=== PATIENT | female | born 1955 | race African-American/Black ===

== ENCOUNTER 2017-11-27 20:33 | Emergency (ER) | payer SELFPAY ==
[~2017-11-27] VITALS: Ht 157.5 cm; Wt 69.0 kg
[2017-11-27] MEDS ORDERED: METHYLPREDNISOLONE SOD SUCC 125 MG/2 ML VIAL IV STA (22:22)
[2017-11-27] MEDS ORDERED: ACYCLOVIR INJ 500 MG in DEXT 5% WATER 100 ML IV SCH (22:30)
[2017-11-27] MEDS ORDERED: ASPIRIN 81MG TABLET PO ONE (22:30)
[2017-11-27] MEDS ORDERED: ACYCLOVIR INJ 500 MG in SODIUM CHLORIDE 0.9% 100 ML IV NR (23:00)
[2017-11-27 23:19] LABS: BASOPHILS % 0.5 % (0.0-2.0); EOSINOPHILS % 1.1 % (0.0-5.0); HEMATOCRIT. 36.5 % (36.0-48.0); LYMPHOCYTES % 41.9 % (20.0-50.0); MEAN CORPUSCULAR HEMOGLOBIN 28.1 pg (28.0-32.0); MEAN CORPUSCULAR VOLUME 85.8 fL (81.0-99.0); MONOCYTES % 5.8 % (2.0-8.0); NEUTROPHILS % 50.7 % (40.0-76.0); PLATELET 201 x1000/uL (130-400); RED BLOOD CELL COUNT 4.26 mill/uL (4.2-5.4)
[2017-11-27 23:25] LABS: PROTHROMBIN TIME 10.3 sec (9.4-11.6)
[2017-11-27 23:32] LABS: CLARITY URINE CLEAR (CLEAR); COLOR URINE YELLOW (YELLOW); KETONES URINE NEGATIVE (NEGATIVE); LEUKOCYTE ESTERASE URINE 2+ (NEGATIVE); NITRITE URINE NEGATIVE (NEGATIVE); OCCULT BLOOD URINE NEGATIVE (NEGATIVE); PH URINE 6.5 (4.5-8.0); PROTEIN URINE NEGATIVE (NEGATIVE); SPECIFIC GRAVITY URINE 1.008 (1.005-1.030); UROBILINOGEN URINE 0.2 E.U./dL (0.2-1.0)
[2017-11-27 23:37] LABS: CARBON DIOXIDE 29 mEq/L (21-32); CHLORIDE 108 mEq/L (98-107); TROPONIN I <0.01 ng/mL ng/mL (0.00-0.04)
[2017-11-28 00:23] VITALS: BP 148/76
[2017-11-28] MEDS ORDERED: CEFTRIAXONE 1 G PREMIX 50 ML IV ONE (01:30)
== END 2017-11-28 03:33 | disposition home or self-care (01) ==
LOC: ER 22:16
DX: R07.89 Other chest pain (principal); B02.9 Zoster without complications; N39.0 Urinary tract infection, site not specified; N64.4 Mastodynia; R03.0 Elevated blood-pressure reading, without diagnosis of hypertension; Z79.82 Long term (current) use of aspirin; R94.31 Abnormal electrocardiogram [ECG] [EKG]
CPT/HCPCS: 36415; 71045; 80053; 81001; 83880; 84484; 85025; 85610; 93005; 96365; 96366; 96367; 96375; 99285; J0133; J0696; J2930; Z7610; J7050; J7060

== ENCOUNTER 2018-11-14 08:17 | Emergency (ER) | payer SELFPAY ==
[~2018-11-14] VITALS: Ht 165.1 cm; Wt 65.0 kg
[2018-11-14] MEDS ORDERED: KETOROLAC 60MG/2ML VIAL IM ONE (09:00)
[2018-11-14 10:35] VITALS: BP 170/86
== END 2018-11-14 10:41 | disposition home or self-care (01) ==
LOC: ER 08:17
DX: M25.512 Pain in left shoulder (principal); V43.52XA Car driver injured in collision with other type car in traffic accident, initial encounter; Y93.89 Activity, other specified; Y92.410 Unspecified street and highway as the place of occurrence of the external cause
CPT/HCPCS: 73030; 96372; 99283; J1885

== ENCOUNTER 2020-04-25 17:18 | Inpatient (IN) | payer SELFPAY ==
[~2020-04-25] VITALS: Ht 167.6 cm; Wt 72.6 kg
[2020-04-25 19:05] LABS: BASOPHILS % 1.3 % (0.0-2.0); EOSINOPHILS % 1.5 % (0.0-5.0); HEMATOCRIT. 42.8 % (36.0-48.0); HEMOGLOBIN. 13.9 g/dL (12.0-16.0); LYMPHOCYTES % 31.2 % (20.0-50.0); MEAN PLATELET VOLUME 9.5 fl (7.4-10.4); MONOCYTES % 4.7 % (2.0-8.0); NEUTROPHILS % 61.3 % (40.0-76.0); PLATELET 209 x1000/uL (130-400); RED BLOOD CELL COUNT 4.97 mill/uL (4.2-5.4); RED CELL DISTRIBUTION WIDTH 14.1 % (11.6-14.6)
[2020-04-25 19:09] LABS: CHLORIDE 105 mEq/L (98-107)
[2020-04-25] MEDS ORDERED: ASPIRIN 325MG EC TABLET PO ONE (22:45)
[2020-04-25] MEDS ORDERED: NITROGLYCERIN 0.4MG TABLET SL SL ONE (22:45)
[2020-04-26 05:38] VITALS: BP 171/81
[2020-04-26] MEDS ORDERED: DOCUSATE SODIUM 100MG CAPSULE PO PRN (07:45)
[2020-04-26] MEDS ORDERED: ACETAMINOPHEN 650MG/20.3ML UDC GT PRN (07:45)
[2020-04-26] MEDS ORDERED: GUAIFENESIN 200MG/10ML SUGAR FREE UDC PO PRN (07:45)
[2020-04-26] MEDS ORDERED: ACETAMINOPHEN 325MG TABLET PO PRN (07:45)
[2020-04-26] MEDS ORDERED: ONDANSETRON HCL 4MG/2ML INJ IV PRN (07:45)
[2020-04-26 08:00] VITALS: BP 163/78
[2020-04-26] MEDS ORDERED: PNEUMOCOCCAL 23-VAL P-SAC VAC 0.5 ML IM ONE (09:00)
[2020-04-26] MEDS: ASPIRIN 81MG EC TABLET PO SCH (09:27)
[2020-04-26] MEDS: AMLODIPINE 10MG TABLET PO SCH (09:28)
[2020-04-26] MEDS: ENOXAPARIN 40MG/0.4ML SYR SUBCUT SCH (09:30)
[2020-04-26] MEDS: ACETAMINOPHEN 325MG TABLET PO PRN ×2 (09:38→16:19)
[2020-04-26 09:48] VITALS: BP 163/78
[2020-04-26] MEDS ORDERED: ALPRAZOLAM 0.25 MG TABLET PO PRN (11:00)
[2020-04-26 12:00] VITALS: BP 128/64
[2020-04-26 12:05] LABS: BASOPHILS % 0.9 % (0.0-2.0); EOSINOPHILS % 1.2 % (0.0-5.0); HEMATOCRIT. 40.7 % (36.0-48.0); HEMOGLOBIN. 13.4 g/dL (12.0-16.0); LYMPHOCYTES % 37.3 % (20.0-50.0); MEAN CORPUSCULAR HEMOGLOBIN 28.4 pg (28.0-32.0); MEAN CORPUSCULAR VOLUME 85.9 fL (81.0-99.0); MEAN PLATELET VOLUME 9.7 fl (7.4-10.4); MONOCYTES % 6.7 % (2.0-8.0); NEUTROPHILS % 53.9 % (40.0-76.0); PLATELET 189 x1000/uL (130-400); RED BLOOD CELL COUNT 4.73 mill/uL (4.2-5.4); RED CELL DISTRIBUTION WIDTH 13.9 % (11.6-14.6)
[2020-04-26 12:16] LABS: CHLORIDE 105 mEq/L (98-107)
[2020-04-26 12:24] LABS: HDL CHOLESTEROL 100 mg/dL (40-59); LDL CHOLESTEROL 109 mg/dL (5-100)
[2020-04-26] MEDS ORDERED: REGADENOSON 0.4 MG/5 ML IV ONE (13:00)
[2020-04-26 16:00] VITALS: BP 125/87
[2020-04-26 20:00] VITALS: BP 152/78
[2020-04-26] MEDS ORDERED: ATORVASTATIN CALCIUM 20MG TABLET PO SCH (21:00)
[2020-04-26] MEDS: HYDROCODONE/ACETAMINOPHEN 10/325MG TABLET PO PRN (21:49)
[2020-04-27] VITALS: BP 135/69
[2020-04-27 04:00] VITALS: BP 118/61
[2020-04-27] MEDS: HYDROCODONE/ACETAMINOPHEN 10/325MG TABLET PO PRN (04:53)
[2020-04-27 06:47] LABS: BASOPHILS % 0.5 % (0.0-2.0); EOSINOPHILS % 2.6 % (0.0-5.0); HEMATOCRIT. 41.9 % (36.0-48.0); HEMOGLOBIN. 13.9 g/dL (12.0-16.0); MEAN CORPUSCULAR HEMOGLOBIN 28.6 pg (28.0-32.0); MEAN CORPUSCULAR VOLUME 86.3 fL (81.0-99.0); MEAN PLATELET VOLUME 10.1 fl (7.4-10.4); MONOCYTES % 6.1 % (2.0-8.0); NEUTROPHILS % 42.8 % (40.0-76.0); PLATELET 196 x1000/uL (130-400); RED BLOOD CELL COUNT 4.85 mill/uL (4.2-5.4)
[2020-04-27 07:08] LABS: CHLORIDE 105 mEq/L (98-107)
[2020-04-27 07:16] LABS: LDL CHOLESTEROL 109 mg/dL (5-100)
[2020-04-27 07:18] LABS: HDL CHOLESTEROL 100 mg/dL (40-59)
[2020-04-27 08:00] VITALS: BP 119/83
[2020-04-27] MEDS ORDERED: REGADENOSON 0.4 MG/5 ML IV ONE (09:35)
[2020-04-27 12:00] VITALS: BP 130/80
[2020-04-27] MEDS ORDERED: ASPI-1158 PO (12:37)
[2020-04-27] MEDS ORDERED: AMLO10TA80 PO (12:37)
[2020-04-27] MEDS ORDERED: ATOR20TA PO (12:37)
[2020-04-27] MEDS: ASPIRIN 81MG EC TABLET PO SCH (13:14)
[2020-04-27] MEDS: AMLODIPINE 10MG TABLET PO SCH (13:14)
[2020-04-27] MEDS: ENOXAPARIN 40MG/0.4ML SYR SUBCUT SCH (13:15)
[2020-04-27 16:00] VITALS: BP 127/81
[2020-04-27 17:40] VITALS: BP 127/81
== END 2020-04-27 18:10 | disposition home or self-care (01) | DRG 203 ==
LOC: ER 17:18 → 6WST 23:31 → ENRESERV 04-26 05:11
PROVIDERS: ADMIT Family Medicine; ATTEND Family Medicine
DX: R07.89 Other chest pain (principal); J44.9 Chronic obstructive pulmonary disease, unspecified; E78.5 Hyperlipidemia, unspecified; F41.9 Anxiety disorder, unspecified; I10 Essential (primary) hypertension; Z80.1 Family history of malignant neoplasm of trachea, bronchus and lung
CPT/HCPCS: 36415; 71045; 78452; 80053; 80061; 84484; 85025; 85379; 90732; 93005; 93017; 93306; 93970; 99285; A9500; J1650; J2785

== ENCOUNTER 2021-12-26 08:10 | Emergency (ER) | payer MEDICARE, MEDICAID ==
[~2021-12-26] VITALS: Ht 165.1 cm; Wt 72.0 kg
[~2021-12-26 08:10] MED LIST: AMLO10TA80 PO; ASPI-1406 PO; ATOR20TA PO
[2021-12-26] MEDS ORDERED: KETOROLAC 60MG/2ML VIAL IM ONE (09:00)
[2021-12-26] MEDS ORDERED: IBUP-2029 MT (10:30)
[2021-12-26 11:52] VITALS: BP 142/75
== END 2021-12-26 11:53 | disposition home or self-care (01) ==
LOC: ER 08:28
DX: S83.8X1A Sprain of other specified parts of right knee, initial encounter (principal); V49.49XA Driver injured in collision with other motor vehicles in traffic accident, initial encounter; Y93.89 Activity, other specified; Y92.89 Other specified places as the place of occurrence of the external cause; Y99.8 Other external cause status; Z79.899 Other long term (current) drug therapy
CPT/HCPCS: 73560; 96372; 99283; J1885; L1830

== ENCOUNTER 2022-01-02 17:04 | Emergency (ER) | payer MEDICARE, MEDICAID ==
[~2022-01-02] VITALS: Ht 167.6 cm; Wt 73.0 kg
[~2022-01-02 17:04] MED LIST changes: +IBUP-2029 MT
[2022-01-02 17:15] VITALS: BP 138/56
== END 2022-01-02 18:57 | disposition home or self-care (01) ==
LOC: ER 17:04
DX: M25.561 Pain in right knee (principal); Z79.899 Other long term (current) drug therapy; V49.49XA Driver injured in collision with other motor vehicles in traffic accident, initial encounter; Y93.89 Activity, other specified; Y92.89 Other specified places as the place of occurrence of the external cause; Y99.8 Other external cause status
CPT/HCPCS: 99281